=== PATIENT | female | born 1945 | race Two or more races ===

== ENCOUNTER 2021-08-19 23:10 | Inpatient (IN) | payer BC, OTHER ==
[~2021-08-19] VITALS: Ht 172.7 cm; Wt 109.8 kg
[2021-08-19] MEDS ORDERED: RAYOS5 MG (23:17)
[2021-08-19] MEDS ORDERED: TOPROL XL25 M1 (23:17)
[2021-08-20] MEDS ORDERED: HYDROCHLOROTHIA25 MG (08:35)
[2021-08-20] MEDS ORDERED: MULTI VITAMIN1 EACH (08:36)
[2021-08-20] MEDS ORDERED: PRALUENT P75 MG/1 ML (11:13)
[2021-08-20] MEDS ORDERED: LOPRESSOR25 MG (11:13)
== END 2021-08-27 12:54 | disposition home or self-care (01) | DRG 187 ==
LOC: ER 23:10 → SEC-K 08-20 09:58 → MEDI 08-20 12:02
PROVIDERS: ADMIT Internal Medicine; ATTEND Internal Medicine
PROC: 4A12X4Z Monitoring of Cardiac Electrical Activity, External Approach (ICD-10-PCS; principal; 2021-08-20)
PROC: 3E0F7SF Introduction of Other Gas into Respiratory Tract, Via Natural or Artificial Opening (ICD-10-PCS; 2021-08-20)
PROC: BW24ZZZ Computerized Tomography (CT Scan) of Chest and Abdomen (ICD-10-PCS; 2021-08-20)
PROC: B24BZZZ Ultrasonography of Heart with Aorta (ICD-10-PCS; 2021-08-20)
DX: J90 Pleural effusion, not elsewhere classified (principal); N39.0 Urinary tract infection, site not specified; R06.02 Shortness of breath; R07.89 Other chest pain; D72.828 Other elevated white blood cell count; E11.9 Type 2 diabetes mellitus without complications; Z79.4 Long term (current) use of insulin; I25.10 Atherosclerotic heart disease of native coronary artery without angina pectoris; I10 Essential (primary) hypertension; Z95.1 Presence of aortocoronary bypass graft; Z87.891 Personal history of nicotine dependence; Z20.822 Contact with and (suspected) exposure to COVID-19; E66.8 Other obesity